=== PATIENT | male | born 1970 | race Caucasian/White ===

== ENCOUNTER 2020-01-18 12:30 | Outpatient (RCR) | payer BC, SELFPAY ==
--- NOTE | 2019-11-06 14:13 | PTOPEVAL ---
PHYSICAL THERAPY EVALUATION AND PLAN OF CARE Thank you for referring Ahmet Stephen to [facility]. I recommend Ahmet participate in physical therapy 1-2x/week for 4weeks followed by reassessment. Please review, sign, date and return this plan of care PARUL. I agree with and certify that the following plan of care is medically necessary. Referring Physician Date Attending Provider: Hiram Storey, MD Evaluation Evaluation Information Diagnosis CVA Onset October 2018 Subjective Information Ahmet is here today 1 year post Query Text:As Reported By Patient/ CVA. Immediately following Family the CVA he went to the [facility] for a short time in which he started to walk and learned transfers and bathing. He went to [facility] over the winter for 2 months and he worked a lot on walking. He states no one has ever worked on his left arm. He can currently walk short distances , but due to severe left hip pain from a labral tear that occurred with the CVA. Prior Level of Function Home Setting Home Type Apartment,Single Level Environmental Barriers Railing, Ascend Left,Railing, Ascend Right,Stairs, 2-4 Living Situation Alone Cargiver Responsibilities Comment Jerri, caregiver 5x/week for 13 hours total; assists with shopping, steadying assist for bathing, and cleaning; he dresses himself; requires assist to shower under left arm rest Mobility Assistive Devices (Used Last 3 Cane, Large Based Quad, Months) Wheelchair, Manual Bathroom Environment Shower, Door Comments Additional Prior Level of Function walks with his [facility] about his Comments apartment; sits in manual wheelchair while cooking and eating and long distance from car to destination. Pain Assessment Timing of Pain Assessment Timing of Pain Assessment Assessment Pain Scale Pain Scale Used Numeric (1 - 10) Self Report Pain Assessment Left Hip(s) Reported Pain Level 6 Pain Description Sharp Pain Frequency Chronic,Intermittent Lowest Pain Intensity 5 Greatest Pain Intensity 10 Pain Aggravating Factors Walking,Weight B
[2019-11-14 10:44] VITALS: BP_SYST 100
--- NOTE | 2019-11-14 11:43 | OTOPEVAL ---
OCCUPATIONAL THERAPY EVALUATION REPORT 11/14/2019 Thank you for referring Ahmet Stephen to [facility]. Skilled OT indicated 2x/week for 4 weeks. Please review, sign, date and return this plan of care PARUL. I agree with and certify that the following plan of care is medically necessary. Referring Physician Date Referring Provider: Hiram Storey, MD *OT Outpatient Evaluation Evaluation Information Problem Diagnosis CVA Onset October 2018 Subjective Information Ahmet is here today 1 year post Query Text:As Reported By Patient/ CVA. Immediately following Family the CVA he went to the Rehab [place] for a short time in which he started to walk and learned transfers and bathing. He went to [facility] over the winter for 2 months and he worked a lot on walking. He states no one has ever worked on his left arm. He can currently walk short distances, but due to severe left hip pain from a labral tear that occurred with the CVA. Prior Level of Function Activity Level (Last 3 Months) Hand Dominance Right Activity of Daily Living Ability Needs Some Help Indoor/Home Mobility Independent Community Mobility Independent Stairs Ability Independent Functional Cognition (Planning, Shopping Independent , Taking Medications) Cooking Yes Cleaning No Laundry No Shopping No Driving No Home Setting Home Type Apartment Environmental Barriers Railing, Ascend Left,Railing, Ascend Right,Stairs, 2-4 Living Situation Alone Cargiver Responsibilities Comment Jerri, caregiver 5x/week for 13 hours total; assists with shopping, laundry, steadying assist for bathing, and cleaning; he dresses himself; requires assist to shower under left arm Mobility Assistive Devices (Used Last 3 Cane, Large Based Quad, Months) Wheelchair, Manual Bathroom Environment Shower, Curtain Bathing Equipment Grab Bars, Suction,Hand Held Shower,Tub Seat With Back Toileting Equipment Raised Toilet Seat Grooming Activities of Daily Living None Devices
--- NOTE | 2019-12-07 14:32 | PTOPEVAL ---
PHYSICAL THERAPY PROGRESS REPORT Thank you for referring Ahmet Stephen to [facility]. I recommend continuing physical therapy 2x/week for 4-8weeks more to continue monitoring progress. Please review, sign, date and return this plan of care PARUL. OF NOTE: I discussed with patient the possibility of using muscle relaxer (i.e. botox) via injection to left gastroc to allow patient to be able to at least place foot flat on floor while standing and walking and possibly to overcome tone to promote dorsiflexion. He plans to call physician's office to discuss. I agree with and certify that the following plan of care is medically necessary. Referring Physician Date Attending Provider: Hiram Storey, Progress Diagnosis CVA Onset October 2018 Subjective Information Ahmet is here today 1 year post Query Text:As Reported By Patient/ CVA. Reports he feels a Family little stronger overall. Up to doing 100 leg lifts and side to side with the leg ever day. States his HEP continues to be a chellenge. Self Report Pain Assessment Left Shoulder(s) Reported Pain Level 2 Pain Description Aching Lower Extremity Muscle Strength Testing Hip Strength Right Hip Flexion Strength 5 Normal Hip Extension Strength 5 Normal Hip Abduction Strength 5 Normal Left Hip Flexion Strength 4 Good Hip Extension Strength 3- Fair - Hip Abduction Strength 3- Fair - Knee Strength Right Knee Flexion Strength 5 Normal Knee Extension Strength 5 Normal Left Knee Flexion Strength 2+ Poor + Knee Extension Strength 3+ Fair + Ankle Strength Left Ankle Dorsiflexion Strength 0 Zero Ankle Plantarflexion Strength 2- Poor - Palpation atrophy improving and progressing, continues to have very slim left thig Becerra Balance Assessment Sitting to Standing Independent w/Hands Unsupported Stance Ability 30 seconds Sitting Unsupported, Feet on Floor Safely- 2 minutes Standing to Sitting Assist, Use Legs on Chair Transfer Ability Safely, Hand Use Unsupported Stance- Eyes Closed 3 seconds Unsupported Stance- Feet Together Independent, <30 seconds Reaching Forward while Standing Supported, Looses Balance it support technician Object From Floor Requires Assistance Look Behind Shoulder - Standing Supervision w/Turning Turning 360 Degrees Requires Assistance Unsupported Stance, Alternating Feet on Assist to Prevent Fall Stair Unsupported Tandem Stance Assist to Step-15 seconds Unilateral Leg Stance Unable,assist to not fall BECERRA Balance Evaluation Total Score 20/56
[2019-12-19 12:33] VITALS: BP_SYST 160
--- NOTE | 2019-12-19 13:32 | OTOPEVAL ---
OCCUPATIONAL THERAPY RE-EVALUATION REPORT 12/19/2019 Thank you for referring Ahmet Stephen to [facility]. Continued skilled OT indicated 2x/week for 4 weeks. Please review, sign, date and return this plan of care PARUL. I agree with and certify that the following plan of care is medically necessary. Referring Physician Date Admitting Provider: Attending Provider: Hiram Storey, MD Referring Provider: *OT Outpatient Re-Evaluation Start: 11/14/19 10:44 Therapy Assessment Status Assessment Status Assessment Status Re-evaluation Outpatient Past Medical History Neurological History Hx Cerebrovascular Accident (CVA) Yes Evaluation Information Problem Diagnosis s/p CVA Onset October 2018 Subjective Information Ahmet reports noticing a little Query Text:As Reported By Patient/ more movement in the LUE Family since he started coming to therapy. Patient and his caregiver report that he has improved with bathing and dressing, cutting down the time to get ready from 30 minutes to 15 minutes. He is also now able to put a sweatshirt on independently. Pain Assessment Timing of Pain Assessment Timing of Pain Assessment Re-assessment Pain Scale Pain Scale Used Numeric (1 - 10) Self Report Pain Assessment Left Shoulder(s) Reported Pain Level 2 Pain Frequency Chronic Pain Score Pain Score 2: Self Report Additional Pain Score Comments Shoulder pain improved from a constant 7/10 to 2/10. Upper Extremity Range of Motion Scapular/ Shoulder Range of Motion Left Scapular: Retraction Hypomobile Scapular: Protraction Hypomobile Scapular Downward Rotation Hypomobile Scapular Upward Rotation Hypomobile Shoulder Flexion - Active 30 Shoulder Flexion - Passive 160 Shoulder Extension - Active 55 Shoulder Abduction - Active 0 Shoulder Abduction - Passive 160 Scapular/Shoulder Range of Motion -PROM made marked improvements Comments . He was able to tolerate PROM to 160, compared to severe pain with PROM >90 at SOC. -Patient has 1 finger width subluxation in the GH joint. This has improved from being 2 + finger width subluxed. Elbow/Forearm Range of Motion Left Elbow Flexion - Active 120 Elbow Flexion - Passive 140 Elbow Extension - Active -10 Elbow Extension - Passive
--- NOTE | 2020-01-04 13:25 | PTOPEVAL ---
PHYSICAL THERAPY PROGRESS REPORT AND PLAN OF CARE UPDATE Thank you for referring Ahmet Stephen to [facility]. Please review, sign, date and return this plan of care PARUL. I agree with and certify that the following plan of care is medically necessary. Referring Physician Date Attending Provider: Hiram Storey, Progress Outpatient Past Medical History Neurological History Hx Cerebrovascular Accident (CVA) Yes Diagnosis s/p CVA Onset October 2018 Subjective Information Ahmet reports he continues to Query Text:As Reported By Patient/ be depressed. States there is Family nothing new. is able to identify 2 LE exercises and then states that he remembers the other exercises when shown pictures. Also states that he walks at home - states that he walks all over Pain Assessment Timing of Pain Assessment Timing of Pain Assessment Pre-Treatment Pain Scale Pain Scale Used Numeric (1 - 10) Self Report Pain Assessment Left Hip(s) Reported Pain Level 3 Pain Score Pain Score 3: Self Report Lower Extremity Muscle Strength Testing Hip Strength Right Hip Flexion Strength 5 Normal Hip Extension Strength 5 Normal Hip Abduction Strength 5 Normal Left Hip Flexion Strength 4+ Good + Hip Extension Strength 3- Fair - Hip Abduction Strength 3- Fair - Hip Adduction Strength 3+ Fair + Knee Strength Right Knee Flexion Strength 5 Normal Knee Extension Strength 5 Normal Left Knee Flexion Strength 2+ Poor + Knee Extension Strength 3+ Fair + Ankle Strength Left Ankle Dorsiflexion Strength 0 Zero Ankle Plantarflexion Strength 2- Poor - Balance Assessment Becerra Balance Assessment Sitting to Standing Independent w/Hands Unsupported Stance Ability Supervision- 2 minutes Sitting Unsupported, Feet on Floor Safely- 2 minutes Standing to Sitting Assist, Control w/Hands Transfer Ability Safely, Hand Use Unsupported Stance- Eyes Closed Supervision, 10 seconds Unsupported Stance- Feet Together Independent, <30 seconds Reaching Forward while Standing Supervision Needed supervisor wood room Object From Floor Requires Assistance Look Behind Shoulder - Standing Turns Sideways Only Turning 360 Degrees Requires Assistance Unsupported Stance, Alternating Feet on Assist to Prevent Fall Stair Unsupported Tandem Stance Small Step- 30 seconds Unilateral Leg Stance Unable,assist to not fall BECERRA Balance Evaluation Total Score (/56 26 points) 5 T
[2020-01-18 11:06] VITALS: BP_SYST 160
--- NOTE | 2020-01-18 11:53 | OTOPEVAL ---
OCCUPATIONAL THERAPY DISCHARGE NOTE 01/18/2020 At this time, Ahmet has reached a progress plateau with (R) UE AROM and strength. He is currently independent with all home exercises. Thank you for referring Ahmet Stephen to [facility]. Please review, sign, date and return this D/C Note PARUL. I agree with and certify that the following plan of care is medically necessary. Referring Physician Date Referring Provider: Hiram Storey, *OT Outpatient Evaluation Evaluation Information Problem Diagnosis s/p CVA Onset October 2018 Additional Evaluation Detail Ahmet has been participating in outpatient OT since 11/14/19 for UE hemiplegia following CVA. He is currently 14 months post CVA. Treatment has included use of e-stim, weight bearing, and AAROM/PROM. Other muscle facilitory techniques such as muscle tapping and vibration have also been used in conjunction with treatment. Subjective Information Ahmet reports he thinks the Query Text:As Reported By Patient/ therapy is helping, reporting Family that he is able to do exercises he wasn't able to do before. He continues to report feeling severely depressed and unable to get into the doctor for medication. He reports good compliance with his home exercises. Pain Assessment Timing of Pain Assessment Timing of Pain Assessment Assessment Pain Scale Pain Scale Used Numeric (1 - 10) Self Report Pain Assessment Left Shoulder(s) Reported Pain Level 1 Pain Description Aching,Soreness Greatest Pain Intensity 3 Pain Score Pain Score 1: Self Report Upper Extremity Range of Motion Scapular/ Shoulder Range of Motion Left Scapular: Retraction Hypomobile Scapular: Protraction Hypomobile Scapular Downward Rotation Hypomobile Scapular Upward Rotation Hypomobile Shoulder Flexion - Active 25 Shoulder Flexion - Passive 160 Shoulder Extension - Active 40 Shoulder Abduction - Active 0 Shoulder Abduction - Passive 160 Scapular/Shoulder Range of Motion Patient continues to have 1-1.5 Comments finger width subluxation in the GH joint. At the end of a therapy session, the patient' s shoulder is approxim
--- NOTE | 2020-01-18 13:30 | PTOPEVAL ---
PHYSICAL THERAPY PROGRESS REPORT Thank you for referring Ahmet Stephen to [facility]. I recommend continuing PT 2x/week for 4 weeks. Please review, sign, date and return this plan of care PARUL. I agree with and certify that the following plan of care is medically necessary. Referring Physician Date Attending Provider: Hiram Storey, Progress Outpatient Past Medical History Neurological History Hx Cerebrovascular Accident (CVA) Yes Evaluation Information Problem Diagnosis s/p CVA Onset October 2018 Subjective Information Ahmet reports he thinks the Query Text:As Reported By Patient/ therapy is helping, reporting Family that he is able to do exercises he wasn't able to do before. He continues to report feeling severely depressed and unable to get into the doctor for medication. He reports good compliance with his home exercises. Pain Assessment Timing of Pain Assessment Timing of Pain Assessment Pre-Treatment Pain Scale Pain Scale Used Numeric (1 - 10) Self Report Pain Assessment Left Hip(s) Reported Pain Level 2 Pain Score Pain Score 2: Self Report Lower Extremity Muscle Strength Testing Hip Strength Right Hip Flexion Strength 5 Normal Hip Extension Strength 5 Normal Hip Abduction Strength 5 Normal Left Hip Flexion Strength 4+ Good + Hip Extension Strength 3- Fair - Hip Abduction Strength 3- Fair - Hip Adduction Strength 3+ Fair + Knee Strength Right Knee Flexion Strength 5 Normal Knee Extension Strength 5 Normal Left Knee Flexion Strength 2+ Poor + Knee Extension Strength 3+ Fair + Ankle Strength Left Ankle Dorsiflexion Strength 0 Zero Ankle Plantarflexion Strength 2- Poor - Balance Assessment Rosas Balance Assessment Sitting to Standing Independent w/Hands Unsupported Stance Ability Safely- 2 minutes Sitting Unsupported, Feet on Floor Safely- 2 minutes Standing to Sitting Assist, Control w/Hands Transfer Ability Safely, Hand Use Unsupported Stance- Eyes Closed Supervision, 10 seconds Unsupported Stance- Feet Together Independent, 1 minute Reaching Forward while Standing Safely, 2 inches 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
--- NOTE | 2020-02-04 12:36 | PCPTNOTE ---
This treatment is being continued on visit number [id number]. Please see documentation on both accounts to view progress. Completed interventions, outcomes, and problems have been marked as Inactive to facilitate the copying of the Care plan routine for recurring accounts.
== END 2020-02-03 23:59 | disposition home or self-care (01) ==
LOC: ANHPT 12:30
PROVIDERS: Visit Provider Family Medicine
DX: I69.354 Hemiplegia and hemiparesis following cerebral infarction affecting left non-dominant side (principal)
CPT/HCPCS: 97014; 97110; 97112; 97113; 97116; 97140; 97162; 97165; 97530; G0283

== ENCOUNTER 2020-03-19 11:00 | Outpatient (RCR) | payer BC, SELFPAY ==
[2020-02-04 00:03] VITALS: BP_SYST 160
--- NOTE | 2020-02-04 12:36 | PCPTNOTE ---
The treatment documented on this account is a continuation of the treatment documented on visit number [id number]. Please see documentation on both accounts to view progress. The Plan of Care has been transitioned and updated within the new V#. I have addressed and agree with the discipline specific Problems, Interventions, and Goals for the current certification period. Completed interventions, outcomes, and problems have been marked as Inactive to facilitate the copying of the Care plan routine for recurring accounts.
--- NOTE | 2020-02-20 11:13 | PTOPEVAL ---
PHYSICAL THERAPY PROGRESS REPORT Thank you for referring Ahmet Stephen to [facility].? The patient is scheduled to be seen for therapy? 1-2x/week for 4 weeks. Please review, sign, date and return this plan of care PARUL. I agree with and certify that the following plan of care is medically necessary. Referring Physician Date Attending Provider: Hiram Storey, Progress Outpatient Past Medical History Neurological History Hx Cerebrovascular Accident (CVA) Yes Evaluation Information Problem Diagnosis s/p CVA Onset October 2018 Subjective Information reports new onset dizziness Query Text:As Reported By Patient/ today. Present for the last Family several days. Not sure why. Does not appear to be positional based on patient report and behavior during session. States he has not been checking his blood sugar because he cannot find his strips. Otherwise he has no new news to report. Self Report Pain Assessment Left Hip(s) Reported Pain Level 4 Pain Score Pain Score 4: Self Report Lower Extremity Muscle Strength Testing Hip Strength Left Hip Flexion Strength 3+ Fair + Hip Extension Strength 2- Poor - Hip Abduction Strength 3- Fair - Knee Strength Left Knee Flexion Strength 1 Trace Knee Extension Strength 3+ Fair + Balance Assessment Becerra Balance Assessment Sitting to Standing Independent w/Hands Unsupported Stance Ability Safely- 2 minutes Sitting Unsupported, Feet on Floor Safely- 2 minutes Standing to Sitting Assist, Control w/Hands Transfer Ability Safely, Hand Use Unsupported Stance- Eyes Closed Safely, 10 seconds Unsupported Stance- Feet Together Supervision to maintain Reaching Forward while Standing Safely, 2 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 Object From Floor Requires Supervision Look Behind Shoulder - Standing Supervision w/Turning Turning 360 Degrees Requires Assistance Unsupported Stance, Alternating Feet on Assist to Prevent Fall Stair Unsupported Tandem Stance Small Step- 30 seconds Unilateral Leg Stance Unable,assist to not fall BECERRA Balance Evaluation Total Score (/56 30 points) Comments 01/18/2020: 29/45 Time Up Go (TUG) Timed Up and Go Test (TUG) (Seconds) 55 Assistive Devices Cane, Large Base Quad Comments 01/18/2020: 45seconds 5 Time Sit to Stand Time in Seconds 25.04 5 Time Sit to Stand Comments using right arm on arm rest Query Text:Normative Data: If Greater without full stand
--- NOTE | 2020-03-19 11:52 | PTOPEVAL ---
PHYSICAL THERAPY PLAN OF CARE UPDATE AND PROGRESS REPORT Thank you for referring Ahmet Stephen to [facility].? The patient is scheduled to be seen for therapy? 1x/week for 4 weeks. Please review, sign, date and return this plan of care PARUL. I agree with and certify that the following plan of care is medically necessary. Referring Physician Date Attending Provider: Hiram Storey, Outpatient Past Medical History Neurological History Hx Cerebrovascular Accident (CVA) Yes Diagnosis s/p CVA Onset October 2018 Subjective Information Dizziness has subsided. Query Text:As Reported By Patient/ Sometimes it will return. Family States that not a lot has changed at home. state she is getting by. Reports left hip is feeling better overall, pain stays lower than it was Self Report Pain Assessment Left Hip(s) Reported Pain Level 2 Lowest Pain Intensity 1 Greatest Pain Intensity 5 Hip Strength Left Hip Flexion Strength 4 Good Hip Extension Strength 2 Poor Hip Abduction Strength 3- Fair - Knee Strength Left Knee Flexion Strength 1 Trace Knee Extension Strength 3+ Fair + Ankle Strength Left Ankle Dorsiflexion Strength 1 Trace Ankle Plantarflexion Strength 3+ Fair + Balance Assessment Rosas Balance Assessment 33/56 Comments 02/20/2020: 30/56 01/18/2020: 29/45 Time Up Go (TUG) 45seconds Assistive Devices Cane, Large Base Quad Comments 02/20/2020: 55seconds 01/18/2020: 45seconds 5 Time Sit to Stand 25.5seconds Comments using right arm on arm rest 02/20/2020: 25.04seconds 01/18/2020: 19.31seconds 3months ago: 31.28 with right UE; Gait Pattern Spastic Gait,Steppage Gait Gait Pattern Observed No Heel Strike - Left, Decreased Stride Length - Right,Decreased Weight Shift - Left Other Gait Observations ankle does not appear to roll at all this date; minimal weight bearing on left LE even in standing; takes a large step with left foot and right foot steps to the left 6 Minute Walk Total Distance (feet) 191 6 Minute Walk Gait Speed Score (feet/ 0.53 second) Number of Breaks During Test 0 6 Minute Gait Comments 02/20/2020: 155ft, .43ft/second 01/18/2020: 165ft,
--- NOTE | 2020-03-24 11:42 | PCPTNOTE ---
PHYSICAL THERAPY DISCHARGE NOTE Attending Provider: Hiram Storey, Patient:Ahmet Stephen Date of :1970 Ahmet's last visit was on 03/19/2020 and was the date of his last plan of care update. Insurance denied coverage of further visits, therefore, he will be discharged from PT at this time. We would be happy to work with him in the future if further PT services are required. The goals have not been met. Thank you for referring Ahmet to [facility]. Please review, sign, date and return this discharge summary PARUL. I have been updated about the patient's current status and I agree with discharge from the above service at this time. Referring Physician Date
== END 2020-03-25 13:09 | disposition home or self-care (01) ==
LOC: ANHPT 11:00
PROVIDERS: Visit Provider Family Medicine
DX: I69.354 Hemiplegia and hemiparesis following cerebral infarction affecting left non-dominant side (principal)
CPT/HCPCS: 97014; 97110; G0283